=== PATIENT | male | born 1985 | race African-American/Black ===

== ENCOUNTER 2021-06-13 13:07 | Emergency (ER) | payer MEDICARE, OTHER ==
[~2021-06-13] VITALS: Ht 172.7 cm; Wt 100.7 kg
[2021-06-13] MEDS ORDERED: NS 1,000 ML IV ONE (15:45)
[2021-06-13] MEDS ORDERED: KETOROLAC 30 MG/ML 1ML VIAL IM ONE (15:45)
[2021-06-13] MEDS ORDERED: KETOROLAC 30 MG/ML 1ML VIAL IV ONE (16:25)
== END 2021-06-13 17:48 | disposition home or self-care (01) ==
LOC: M ED 13:07 → EDUNIT# 13:07 → M ED 17:48
DX: G43.709 Chronic migraine without aura, not intractable, without status migrainosus (principal)
CPT/HCPCS: 96361; 96374; 99284; J1885

== ENCOUNTER → 2021-06-13 | Outpatient (REF) | LOC: M LAB 15:12 | PROVIDERS: ATTEND Family Medicine | DX: Z00.00 Encounter for general adult medical examination without abnormal findings (principal) ==